=== PATIENT | female | born 1955 | race Caucasian/White ===

== ENCOUNTER 2023-01-08 18:16 | Inpatient (IN) | payer MEDICARE, OTHER ==
[~2023-01-08] VITALS: Ht 165.1 cm; Wt 60.8 kg
[2023-01-08] MEDS ORDERED: CHOL100043 PO (18:59)
[2023-01-08] MEDS ORDERED: FERR325T23 PO (18:59)
[2023-01-08] MEDS ORDERED: [UNRECOGNIZED DRUG - OTHER] TD (18:59)
[2023-01-08] MEDS ORDERED: DOCU-141 PO (18:59)
[2023-01-08] MEDS ORDERED: ASCO-352 PO (18:59)
[2023-01-08] MEDS ORDERED: VENL37.591 PO (18:59)
[2023-01-08] MEDS ORDERED: CYAN-51 PO (18:59)
[2023-01-08] MEDS ORDERED: RIVA2.5T PO (18:59)
[2023-01-08] MEDS ORDERED: ZINC30TA2 PO (18:59)
[2023-01-08] MEDS ORDERED: ATOR10TA PO (18:59)
[2023-01-08] MEDS ORDERED: INSU100V7 SQ (18:59)
[2023-01-08] MEDS ORDERED: LOPE2CAP PO (18:59)
[2023-01-08] MEDS ORDERED: LATA2.5D15 EACHEYE (18:59)
[2023-01-08] MEDS ORDERED: METF-442 PO (18:59)
[2023-01-08] MEDS ORDERED: IPRA12.9 IH (18:59)
[2023-01-08] MEDS ORDERED: DORZ10DR11 EACHEYE (18:59)
[2023-01-08] MEDS ORDERED: ANAS1TAB50 NG (18:59)
[2023-01-08] MEDS ORDERED: LOSA25TA27 PO (18:59)
[2023-01-08] MEDS ORDERED: CALC250T2 PO (18:59)
[2023-01-08] MEDS ORDERED: METF-440 PO (18:59)
[2023-01-08] MEDS ORDERED: DIVA125C5 PO (18:59)
[2023-01-08] MEDS ORDERED: SENN-261 PO (18:59)
[2023-01-08] MEDS ORDERED: ACET-868 PO (18:59)
[2023-01-08] MEDS ORDERED: POTA-88 PO (18:59)
[2023-01-08] MEDS ORDERED: MAG30ORA PO (18:59)
[2023-01-08] MEDS ORDERED: HYDR-4303 PO (18:59)
[2023-01-08 19:13] VITALS: O2SAT 97
[2023-01-08 19:21] LABS: BASOPHILS # (AUTO) 0.1 K/uL (0.0-0.2); BASOPHILS % (AUTO) 0.6 % (0.0-2.0); EOSINOPHILS # (AUTO) 0.2 K/uL (0.0-0.7); EOSINOPHILS % (AUTO) 1.6 % (0.0-6.0); HEMATOCRIT 35 % (33-45); HEMOGLOBIN 11.3 g/dL (11.5-14.8); LYMPHOCYTES # (AUTO) 3.2 K/uL (0.8-4.8); MEAN CORPUSCULAR HEMOGLOBIN 27 PG (26.0-33.0); MEAN CORPUSCULAR HGB CONC 32 g/dl (31.0-36.0); MEAN CORPUSCULAR VOLUME 85 fL (82-100); MONOCYTES # (AUTO) 0.9 K/uL (0.1-1.30); MONOCYTES % (AUTO) 8.5 % (2.0-12.0); NEUTROPHILS # (AUTO) 6.1 K/uL (1.8-8.9); NEUTROPHILS % (AUTO) 58.3 % (43.0-81.0); PLATELET COUNT (AUTO) 424 K/uL (150-450); RED BLOOD CELL COUNT(AUTO) 4.18 MIL/uL (4.0-5.2); RED CELL DISTRIBUTION WIDTH 18.7 % (11.5-15.0); WHITE BLOOD COUNT (AUTO) 10.4 K/uL (4.3-11.0)
[2023-01-08 19:33] LABS: ALANINE AMINOTRANSFERASE 11 U/L (12-78); ALBUMIN 2.9 g/dL (3.4-5.0); ALKALINE PHOSPHATASE 61 U/L (46-116); ASPARTATE AMINOTRANSFERASE 12 U/L (15-37); BILIRUBIN,DIRECT 0.2 mg/dL (0.0-0.2); BILIRUBIN,TOTAL 0.3 mg/dL (0.2-1.0); CARBON DIOXIDE 26 mmol/L (21-32); CHLORIDE 101 mmol/L (98-107); CREATININE 0.5 mg/dL (0.6-1.3); GLUCOSE 86 mg/dL (74-106); SODIUM SERUM 134 mmol/L (136-145); TOTAL PROTEIN, SERUM 7.8 g/dL (6.4-8.2); UREA NITROGEN, BLOOD 12 mg/dL (7-18)
[2023-01-08 19:55] LABS: LACTIC ACID 1.1 mmol/L (0.4-2.0)
[2023-01-08 19:59] LABS: INR 1.14 (0.91-1.10); PROTHROMBIN TIME 11.9 SECS (9.2-11.1)
[2023-01-08] MEDS ORDERED: Calcium Gluconate 1GM/10ML 4.65 MEQ in IV NS 0.9% 100 ML IV ONE (20:30)
[2023-01-08 20:36] LABS: APPEARANCE,URINE SLIGHTLY CLOUDY (CLEAR); BILIRUBIN,URINE NEGATIVE (NEGATIVE); BLOOD, URINE 1+ Ery/uL (NEGATIVE); COLOR,URINE YELLOW (YELLOW); KETONES,URINE 1+ mg/dL (NEGATIVE); LEUKOCYTE ESTERASE ,URINE 3+ (NEGATIVE); NITRITE, URINE POSITIVE (NEGATIVE); PROTEIN,URINE NEGATIVE (NEGATIVE); UGLUCOSE NEGATIVE (NEGATIVE); UROBILINOGEN,URINE 0.2 EU/dL (0.2)
[2023-01-08 20:41] LABS: ADD URINE CULTURE YES; BACTERIA,URINE 3+ /HPF (None Seen); SQUAMOUS EPITHELIAL CELL,UR 0-2 /HPF (None Seen); WBC,URINE 51-80 /HPF (0-3)
[2023-01-08 20:52] LABS: PARTIAL THROMBOPLASTIN TIME 32.4 SEC (24.3-34.3)
[2023-01-08] MEDS ORDERED: VANCOMYCIN 1 GM in IV D5W 250 ML IV ONE (21:30)
[2023-01-08] MEDS ORDERED: PIPERACILLIN /TAZOBACTAM 3.375 G in IV D5W 50 ML IV ONE (21:30)
[2023-01-08 21:43] LABS: CALCIUM, SERUM 9.1 mg/dL (8.5-10.1)
[2023-01-08] MEDS ORDERED: PIPERACI/TAZO 3.375GM/D5W 50ML PB IV ONE (22:22)
[2023-01-08] MEDS ORDERED: VANCOMYCIN 1 GM /D5W 250 ML PB IV ONE (22:29)
[2023-01-09] MEDS ORDERED: ZOLPIDEM TARTRATE 5 MG TABLET PO PRN (03:30)
[2023-01-09] MEDS ORDERED: DEXTROSE 50%-WATER 50 ML DISP.SYRIN IV PRN (03:30)
[2023-01-09] MEDS ORDERED: ONDANSETRON HCL/PF 4 MG/2 ML VIAL IVP PRN (03:30)
[2023-01-09] MEDS ORDERED: MAGNESIUM HYDROXIDE 30 ML UDC PO PRN (03:30)
[2023-01-09] MEDS ORDERED: Z GUARD REMEDY 4 OZ OINT TP PRN (03:30)
[2023-01-09] MEDS ORDERED: MAG HYDROX/AL HYDROX/SIMETH 30 ML UDC PO PRN (03:30)
[2023-01-09] MEDS ORDERED: PIPERACI/TAZO 3.375GM/D5W 50ML PB IV ONE (04:14)
[2023-01-09] MEDS ORDERED: ZOSYN IVPB 3.375 G in IV D5W 50ml IV SCH (06:00)
[2023-01-09 06:07] LABS: BASOPHILS % (AUTO) 0.4 % (0.0-2.0); EOSINOPHILS # (AUTO) 0.2 K/uL (0.0-0.7); EOSINOPHILS % (AUTO) 1.7 % (0.0-6.0); HEMATOCRIT 34 % (33-45); HEMOGLOBIN 11.1 g/dL (11.5-14.8); LYMPHOCYTES # (AUTO) 2.8 K/uL (0.8-4.8); LYMPHOCYTES % (AUTO) 28.5 % (20.0-44.0); MEAN CORPUSCULAR HEMOGLOBIN 28 PG (26.0-33.0); MEAN CORPUSCULAR HGB CONC 32 g/dl (31.0-36.0); MEAN CORPUSCULAR VOLUME 85 fL (82-100); MONOCYTES % (AUTO) 10.1 % (2.0-12.0); NEUTROPHILS # (AUTO) 5.8 K/uL (1.8-8.9); NEUTROPHILS % (AUTO) 59.3 % (43.0-81.0); PLATELET COUNT (AUTO) 375 K/uL (150-450); RED BLOOD CELL COUNT(AUTO) 4.05 MIL/uL (4.0-5.2); RED CELL DISTRIBUTION WIDTH 18.3 % (11.5-15.0); WHITE BLOOD COUNT (AUTO) 9.8 K/uL (4.3-11.0)
[2023-01-09] MEDS: BLOOD SUGAR DIAGNOSTIC 1 EACH STRIP IN SCH ×4 (06:11→21:45)
[2023-01-09 06:31] LABS: CALCIUM, SERUM 9.1 mg/dL (8.5-10.1); CREATININE 0.4 mg/dL (0.6-1.3); MAGNESIUM 1.7 mg/dL (1.8-2.4); PHOSPHORUS 2.4 mg/dL (2.5-4.9); POTASSIUM 3.8 mmol/L (3.5-5.1)
[2023-01-09 08:00] VITALS: BP 140/70; TEMP 98.2; O2SAT 100
[2023-01-09] MEDS ORDERED: PANTOPRAZOLE 40 MG VIAL IV SCH (09:00)
[2023-01-09] MEDS: THERAHONEY GEL 1.5 OZ TUBE TP SCH (09:26)
[2023-01-09] MEDS: ZOSYN IVPB 3.375 G in IV D5W 50ml IV SCH ×3 (10:54→22:25)
[2023-01-09] MEDS ORDERED: MAGNESIUM OXIDE 400 MG TABLET PO ONE (11:00)
[2023-01-09] MEDS: INSULIN REGULAR, HUMAN 100 UNIT/ML 3 ML VIAL SQ PRN ×2 (11:25→17:21)
[2023-01-09] MEDS: VANCOMYCIN HCL 0.75 GM in IV D5W 250 ML IV SCH ×2 (11:47→23:48)
[2023-01-09 15:54] VITALS: BP 137/79; TEMP 98.1; O2SAT 98
[2023-01-09] MEDS ORDERED: K PHOS NEUTRAL 250 MG TABLET PO ONE (16:00)
[2023-01-09] MEDS: ACETAMINOPHEN 325 MG TABLET PO PRN (16:47)
[2023-01-09] MEDS: DIVALPROEX SODIUM 125 MG CAP.SPRINK PO SCH (16:48)
[2023-01-09] MEDS: RIVAROXABAN 10 MG TABLET PO SCH (16:51)
[2023-01-09 20:02] VITALS: BP 113/63; TEMP 97.3; O2SAT 96
[2023-01-09] MEDS: LATANOPROST EYE DROP 0.005% 2.5 ML BOTTLE EACHEYE SCH (21:44)
[2023-01-09] MEDS: TIMOLOL MAL/DORZOLAM HCL OPHTH 10 ML BOTTLE EACHEYE SCH (21:45)
[2023-01-09] MEDS: ATORVASTATIN 10 MG TABLET PO SCH (21:54)
[2023-01-09] MEDS: INSULIN GLARGINE, 100 UNIT/ML CARTRIDGE SQ SCH (21:55)
[2023-01-10 00:23] VITALS: BP 122/55; TEMP 97.7; O2SAT 93
[2023-01-10] MEDS: ZOSYN IVPB 3.375 G in IV D5W 50ml IV SCH ×4 (05:36→22:38)
[2023-01-10 07:00] VITALS: BP 132/69; TEMP 97.6; O2SAT 98
[2023-01-10 07:12] LABS: MAGNESIUM 1.7 mg/dL (1.8-2.4)
[2023-01-10] MEDS: BLOOD SUGAR DIAGNOSTIC 1 EACH STRIP IN SCH ×4 (07:17→22:26)
[2023-01-10] MEDS: INSULIN REGULAR, HUMAN 100 UNIT/ML 3 ML VIAL SQ PRN ×3 (07:17→16:42)
[2023-01-10] MEDS: VENLAFAXINE XR 37.5 MG CAP.SR.24H PO SCH (08:48)
[2023-01-10] MEDS: PANTOPRAZOLE 40 MG TABLET.DR PO SCH (08:48)
[2023-01-10] MEDS: DOCUSATE SODIUM 100 MG CAPSULE PO SCH (08:49)
[2023-01-10] MEDS: ANASTROZOLE 1 MG TABLET PO SCH (08:49)
[2023-01-10] MEDS: DIVALPROEX SODIUM 125 MG CAP.SPRINK PO SCH ×2 (08:49→16:19)
[2023-01-10] MEDS: LOSARTAN POTASSIUM 25 MG TABLET PO SCH (08:50)
[2023-01-10] MEDS: THERAHONEY GEL 1.5 OZ TUBE TP SCH (08:59)
[2023-01-10] MEDS ORDERED: MAGNESIUM OXIDE 400 MG TABLET PO ONE (10:30)
[2023-01-10] MEDS: VANCOMYCIN HCL 0.75 GM in IV D5W 250 ML IV SCH ×2 (12:15→23:52)
[2023-01-10] MEDS: PROSOURCE / PROSTAT (PYXIS) 30 ML UDC PO SCH ×2 (13:07→16:20)
[2023-01-10 16:00] VITALS: BP_SYST 124; BP_SYST 149; BP_DIAS 65; BP_DIAS 71; TEMP 97.9; TEMP 98.8; O2SAT 98; O2SAT 99
[2023-01-10] MEDS: GLUCERNA SHAKE 237 ML CAN PO SCH (16:19)
[2023-01-10] MEDS: RIVAROXABAN 10 MG TABLET PO SCH (16:19)
[2023-01-10] MEDS: ARGININE/GLUTAMINE/CALCIUM BMB 1 EACH POWD.PACK PO SCH (16:20)
[2023-01-10] MEDS: ACETAMINOPHEN 325 MG TABLET PO PRN (20:00)
[2023-01-10] MEDS: LATANOPROST EYE DROP 0.005% 2.5 ML BOTTLE EACHEYE SCH (22:25)
[2023-01-10] MEDS: TIMOLOL MAL/DORZOLAM HCL OPHTH 10 ML BOTTLE EACHEYE SCH (22:25)
[2023-01-10] MEDS: ATORVASTATIN 10 MG TABLET PO SCH (22:36)
[2023-01-10] MEDS: INSULIN GLARGINE, 100 UNIT/ML CARTRIDGE SQ SCH (22:38)
[2023-01-11] MEDS: ZOSYN IVPB 3.375 G in IV D5W 50ml IV SCH ×2 (05:13→10:30)
[2023-01-11 05:46] LABS: BASOPHILS # (AUTO) 0.1 K/uL (0.0-0.2); BASOPHILS % (AUTO) 0.7 % (0.0-2.0); EOSINOPHILS # (AUTO) 0.3 K/uL (0.0-0.7); EOSINOPHILS % (AUTO) 3.1 % (0.0-6.0); HEMATOCRIT 33 % (33-45); HEMOGLOBIN 10.6 g/dL (11.5-14.8); LYMPHOCYTES # (AUTO) 2.6 K/uL (0.8-4.8); LYMPHOCYTES % (AUTO) 26.4 % (20.0-44.0); MEAN CORPUSCULAR HEMOGLOBIN 28 PG (26.0-33.0); MEAN CORPUSCULAR HGB CONC 32 g/dl (31.0-36.0); MEAN CORPUSCULAR VOLUME 85 fL (82-100); MONOCYTES # (AUTO) 1.1 K/uL (0.1-1.30); MONOCYTES % (AUTO) 11.3 % (2.0-12.0); NEUTROPHILS # (AUTO) 5.6 K/uL (1.8-8.9); NEUTROPHILS % (AUTO) 58.5 % (43.0-81.0); PLATELET COUNT (AUTO) 362 K/uL (150-450); RED BLOOD CELL COUNT(AUTO) 3.84 MIL/uL (4.0-5.2); RED CELL DISTRIBUTION WIDTH 18.8 % (11.5-15.0); WHITE BLOOD COUNT (AUTO) 9.6 K/uL (4.3-11.0)
[2023-01-11 06:30] LABS: CALCIUM, SERUM 8.9 mg/dL (8.5-10.1); CREATININE 0.5 mg/dL (0.6-1.3); MAGNESIUM 1.8 mg/dL (1.8-2.4); PHOSPHORUS 3.5 mg/dL (2.5-4.9); POTASSIUM 3.2 mmol/L (3.5-5.1)
[2023-01-11] MEDS: BLOOD SUGAR DIAGNOSTIC 1 EACH STRIP IN SCH ×2 (06:58→11:46)
[2023-01-11] MEDS: INSULIN REGULAR, HUMAN 100 UNIT/ML 3 ML VIAL SQ PRN (06:58)
[2023-01-11 07:30] VITALS: BP 140/81; TEMP 97.8; O2SAT 99
[2023-01-11] MEDS ORDERED: VANC750P13 IV (07:57)
[2023-01-11] MEDS ORDERED: COLL30OI TP (07:57)
[2023-01-11] MEDS ORDERED: CEFE2FRO IV (07:57)
[2023-01-11] MEDS ORDERED: AMIN30LI25 PO (07:57)
[2023-01-11] MEDS ORDERED: POTASSIUM CHLORIDE 20 MEQ TAB.PRT.SR PO ONE (08:00)
[2023-01-11] MEDS: ANASTROZOLE 1 MG TABLET PO SCH (08:33)
[2023-01-11 08:34] VITALS: BP 140/81
[2023-01-11] MEDS: VENLAFAXINE XR 37.5 MG CAP.SR.24H PO SCH (08:34)
[2023-01-11] MEDS: LOSARTAN POTASSIUM 25 MG TABLET PO SCH (08:34)
[2023-01-11] MEDS: DOCUSATE SODIUM 100 MG CAPSULE PO SCH (08:34)
[2023-01-11] MEDS: PANTOPRAZOLE 40 MG TABLET.DR PO SCH (08:34)
[2023-01-11] MEDS: DIVALPROEX SODIUM 125 MG CAP.SPRINK PO SCH (08:34)
[2023-01-11] MEDS: GLUCERNA SHAKE 237 ML CAN PO SCH (08:35)
[2023-01-11] MEDS ORDERED: FERROUS SULFATE (325 MG) 325 MG/TAB TABLET PO SCH (09:00)
[2023-01-11] MEDS: THERAHONEY GEL 1.5 OZ TUBE TP SCH (09:00)
[2023-01-11] MEDS: ARGININE/GLUTAMINE/CALCIUM BMB 1 EACH POWD.PACK PO SCH (09:06)
[2023-01-11] MEDS: PROSOURCE / PROSTAT (PYXIS) 30 ML UDC PO SCH ×2 (09:06→12:15)
[2023-01-11] MEDS: VANCOMYCIN HCL 0.75 GM in IV D5W 250 ML IV SCH (11:25)
== END 2023-01-11 14:45 | DRG 981 ==
LOC: ER 18:49 → MED 21:50
PROVIDERS: ADMIT Nurse Practitioner Acute Care; ATTEND Nurse Practitioner Acute Care
PROC: 0KBP0ZZ Excision of Left Hip Muscle, Open Approach (ICD-10-PCS; principal; 2023-01-09)
PROC: 0KBN0ZZ Excision of Right Hip Muscle, Open Approach (ICD-10-PCS; 2023-01-09)
DX: N39.0 Urinary tract infection, site not specified (principal); L89.154 Pressure ulcer of sacral region, stage 4; D68.59 Other primary thrombophilia; Z85.3 Personal history of malignant neoplasm of breast; E11.9 Type 2 diabetes mellitus without complications; Z20.822 Contact with and (suspected) exposure to COVID-19; Z90.12 Acquired absence of left breast and nipple; Z88.5 Allergy status to narcotic agent; Z91.011 Allergy to milk products; Z79.51 Long term (current) use of inhaled steroids; Z79.01 Long term (current) use of anticoagulants; Z79.84 Long term (current) use of oral hypoglycemic drugs; Z79.899 Other long term (current) drug therapy; Z86.011 Personal history of benign neoplasm of the brain; H40.9 Unspecified glaucoma; E78.5 Hyperlipidemia, unspecified; Z74.01 Bed confinement status; Z74.09 Other reduced mobility; E87.6 Hypokalemia; Z79.4 Long term (current) use of insulin; Z92.3 Personal history of irradiation
CPT/HCPCS: 36415; 71045-TC; 80048-TC; 80061-TC; 80076-TC; 80202-TC; 81001; 82962-TC; 83605-TC; 83735-TC; 83880; 84100-TC; 84484-TC; 85025-TC; 85730-TC; 87040-TC; 87081-TC; 87086-TC; A4223; C9113; G0378; J0610; J1815; J2543; J3370; J7030; J7050; J7060